=== PATIENT | male | born 1965 | race Caucasian/White ===

== ENCOUNTER 2019-06-30 12:33 | Emergency (ER) | payer SELFPAY ==
[~2019-06-30 12:33] MED LIST: Iopamidol 370 76% 100 ML VIAL ONE
[2019-06-30] MEDS ORDERED: Adacel (T-DAP) 0.5 ML SYRINGE ONE (12:41)
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
--- NOTE | 2019-06-30 13:16 | RAD ---
PORTABLE SUPINE CHEST: HISTORY: Trauma. FINDINGS: Lung miller are clear. Heart and mediastinum appear normal. The osseous structures appear intact. IMPRESSION: No acute abnormality identified. POS: OFF
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
[2019-06-30 13:25] LABS: #Basophils 0.1 thou/uL (0.0-0.2); #Eosinphils 0.2 thou/uL (0.0-0.7); #Lymphocytes 1.9 thou/uL (1.20-3.40); #Monocytes 0.8 thou/uL (0.11-0.59); #Neutrophils 11.2 thou/uL (1.40-6.50); %Basophils 0.4 % (0.0-1.0); %Eosinophils 1.6 % (0.0-10.0); %Lymphocytes 13.5 % (21.0-51.0); %Monocytes 5.8 % (0.0-10.0); %Neutrophils 78.7 % (42.0-75.0); Mean Corpuscular HGB CONC 33.4 g/dL (32.0-36.0); Mean Corpuscular Hemoglobin 30.8 pg (27.0-31.0); Mean Corpuscular Volume 92.3 fL (78.0-98.0); Mean Platelet Volume 7.7 fL (7.4-10.4); Platelet Count 319 thou/uL (130-400); RBC Distribution Width 11.6 % (11.5-14.5); Red Blood Cell (RBC) Count 5.51 mill/uL (4.70-6.10); White Blood Cell (WBC) Count 14.3 thou/uL (4.8-10.8)
[2019-06-30 13:35] LABS: ALT (SGPT) 123 U/L (8-55); AST (SGOT) 113 U/L (5-34); Alkaline Phosphatase 92 U/L (40-110); Anion Gap 15 mmol/L (10-20); BUN (Urea Nitrogen) 18 mg/dL (8.4-25.7); Bilirubin, Total 0.7 mg/dL (0.2-1.2); Calc. Creatinine Clearance 0 mL/min (70-130); Carbon Dioxide 29 mmol/L (22-29); Chloride 102 mmol/L (98-107); Estimated GFR-MDRD 49; Globulin 3.8 g/dL (2.4-3.5); Glucose 143 mg/dL (70-105); Lipase 86 U/L (8-78); Potassium 3.7 mmol/L (3.5-5.1); Protein, Total 7.8 g/dL (6.0-8.3); Sodium 142 mmol/L (136-145)
[2019-06-30] MEDS ORDERED: Lidocaine 1% w/Epinephrine 1:100K 20 ML VIAL ONE (13:42)
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
[2019-06-30 14:07] LABS: Bacteria/HPF None Seen HPF (None Seen); Bilirubin Negative (Negative); Blood, Urine Trace (Negative); Clarity Clear (Clear); Glucose, Urine (Dipstick) Normal (Negative); Leukocyte Negative Leu/uL (Negative); Nitrite Negative (Negative); Protein, Urine (Dipstick) 30 mg/dL (Neg-Trace); RBC/HPF 0-3 HPF (0-3); Squamous Epithelial 0-3 HPF (0-3); Urobilinogen Normal mg/dL (Less than 2); WBC/HPF 0-3 HPF (0-3)
== END 2019-06-30 14:50 | disposition home or self-care (01) ==
LOC: ERS 12:33
DX: S51.812A Laceration without foreign body of left forearm, initial encounter (principal); S31.010A Laceration without foreign body of lower back and pelvis without penetration into retroperitoneum, initial encounter; S70.212A Abrasion, left hip, initial encounter; I10 Essential (primary) hypertension; F17.210 Nicotine dependence, cigarettes, uncomplicated; W61.99XA Other contact with other birds, initial encounter
CPT/HCPCS: 12002; 12032; 36415; 70450; 71045; 71260; 72125; 72170; 74177; 80053; 81003; 81015; 83690; 85025; 86850; 86900; 86901; 90471; 90715; 96365; J0690; L0120; Q9967